=== PATIENT | male | born 2000 | race Two or more races ===

== ENCOUNTER 2020-12-31 18:22 | Emergency (ER) | payer MEDICAID, OTHER ==
[~2020-12-31] VITALS: Ht 180.3 cm; Wt 64.9 kg
[2021-01-01] MEDS ORDERED: cefTRIAXone SOD 1,000 MG VL IM ONE (02:00)
[2021-01-01] MEDS ORDERED: AZITHROMYCIN 250 MG TAB PO ONE (02:00)
[2021-01-01 02:08] VITALS: BP 127/85
== END 2021-01-01 02:18 | disposition home or self-care (01) ==
LOC: ER 18:22
DX: Z20.2 Contact with and (suspected) exposure to infections with a predominantly sexual mode of transmission (principal); N39.0 Urinary tract infection, site not specified
CPT/HCPCS: 96372; 99283; J0696

== ENCOUNTER 2022-09-30 15:55 | Emergency (ER) | payer MEDICAID ==
[~2022-09-30] VITALS: Ht 180.3 cm; Wt 63.0 kg
[2022-09-30 16:10] VITALS: BP 103/49
== END 2022-09-30 18:07 | disposition home or self-care (01) ==
LOC: ER 15:55
DX: S62.394A Other fracture of fourth metacarpal bone, right hand, initial encounter for closed fracture (principal); W22.01XA Walked into wall, initial encounter; Y93.89 Activity, other specified; Y92.89 Other specified places as the place of occurrence of the external cause; Y99.8 Other external cause status
CPT/HCPCS: 73130

== ENCOUNTER 2023-07-06 11:02 | Emergency (ER) | payer MEDICAID, OTHER ==
[~2023-07-06] VITALS: Ht 188 cm; Wt 65.2 kg
[2023-07-06 12:21] VITALS: BP 108/68; PULSE 73; RESP 18; TEMP 98.9; O2SAT 99
[2023-07-06] MEDS: AZITHROMYCIN 250 MG TAB PO ONE (13:05)
[2023-07-06] MEDS: cefTRIAXone SOD 500 MG VL IM ONE (13:06)
== END 2023-07-06 13:09 | disposition home or self-care (01) ==
LOC: ER 11:02
DX: A64 Unspecified sexually transmitted disease (principal); Z20.2 Contact with and (suspected) exposure to infections with a predominantly sexual mode of transmission
CPT/HCPCS: 96372; 99283; J0696